=== PATIENT | female | born 1975 | race Two or more races ===

== ENCOUNTER 2024-06-23 07:46 | Outpatient (CLI) | payer OTHER | END 2024-06-23 08:02 | disposition home or self-care (01) | LOC: TOM 07:46 | PROVIDERS: ATTEND Surgery | DX: K43.6 Other and unspecified ventral hernia with obstruction, without gangrene (principal) ==

== ENCOUNTER 2024-06-25 18:06 | Emergency (ER) | payer OTHER ==
[~2024-06-25] VITALS: Ht 167.6 cm; Wt 74.4 kg
[2024-06-25] MEDS ORDERED: CLARITIN10 M1 PO (18:23)
[2024-06-25] MEDS ORDERED: PROBIOTIC1 EACH PO (18:23)
[2024-06-25] MEDS ORDERED: HYOSCYAMINE SULFATE 0.125 MG TAB.SUBL SL STA (20:15)
== END 2024-06-25 22:10 | disposition home or self-care (01) ==
LOC: ER 18:07
DX: R14.1 Gas pain (principal); R14.2 Eructation; Z91.013 Allergy to seafood; Z91.018 Allergy to other foods